=== PATIENT | female | born 1975 | race Caucasian/White ===

== ENCOUNTER 2020-09-10 11:32 | Emergency (ER) | payer MEDICARE, MEDICAID, SELFPAY ==
--- NOTE | ~2020-09-10 | XR_ITS ---
EXAMINATION: XR CHEST CLINICAL INFORMATION: Slurred speech COMPARISON: Chest radiographs 09/24/2017 TECHNIQUE: Portable upright AP view of the chest was obtained. FINDINGS: There are low lung volumes with inspiration to the right posterior eighth intercostal space. The lungs are clear. The vascularity is normal. The heart is normal in size. There is no airspace consolidation or groundglass opacity or effusion. The hilar and mediastinal contours are unremarkable. No visible acute bony abnormality. XR/XR chest 1V IMPRESSION: Low lung volumes. Lungs clear.
--- NOTE | ~2020-09-10 | CT_ITS ---
EXAMINATION: CT HEAD WITHOUT CONTRAST CLINICAL INFORMATION: Fatigue, dizziness and slurred speech for 3 days COMPARISON: None TECHNIQUE: Contiguous axial imaging was performed from the skull base to vertex without intravenous administration of contrast. This CT examination was performed using dose optimization techniques as appropriate, variously including the following: *Automated exposure control *Adjustment of mA and/or kV according to patient size (this includes techniques or standardized protocols for targeted exams where dose is matched to indication/reason for exam; i.e. extremities or head) *Use of iterative reconstruction technique DLP: 831 mGy-cm FINDINGS: There is no evidence of an extra-axial collection. There is no evidence of intra-axial or extra-axial hemorrhage. There are prominent extra-axial CSF spaces adjacent to both frontal lobes. The ventricles and extra-axial CSF spaces are otherwise appropriate. There is nonspecific periventricular white matter disease. No mass, mass effect or infarct is seen. there is soft tissue opacification of the bilateral mastoid air cells, right greater than left. The middle ears are clear. Paranasal sinuses are clear. CT/CT head/brain wo con IMPRESSION: Soft tissue opacification of the bilateral mastoid air cells, right greater than left, questionable for mastoiditis. Prominent extra-axial CSF spaces adjacent to the bilateral frontal lobes. Nonspecific periventricular white matter disease.
[2020-09-10 11:44] VITALS: BP 102/62; BP 102/63; PULSE 82; PULSE 83; RESP 16; TEMP 36.4; O2SAT 98; O2SAT 99; BMI 38.2
--- NOTE | 2020-09-10 12:10 | ECG_ITS ---
Test Reason : GEN MED Blood Pressure : / mmHG Vent. Rate : 074 BPM Atrial Rate : 074 BPM P-R Int : 182 ms QRS Dur : 090 ms QT Int : 366 ms P-R-T Axes : 024 020 073 degrees QTc Int : 406 ms Normal sinus rhythm Low voltage QRS Nonspecific T wave abnormality Abnormal ECG When compared with ECG of 07-SEP-2017 11:39, Criteria for Septal infarct are no longer Present Nonspecific T wave abnormality, worse in Inferior leads Nonspecific T wave abnormality, worse in Anterolateral leads Referred By: Gemma Soto Electronically Signed By:SAEED MEZA
[2020-09-10] MEDS: 0.9 % Sodium Chloride 1,000 ML 999 ML IVCONT (12:16)
[2020-09-10 12:35] LABS: MANUAL DIFF FLAG NO
[2020-09-10 12:37] LABS: Basophils Percent Auto 0.6 % (0-2); Eosinophils Absolute Auto 0.8 X10*3/uL (0.0-0.4); Hematocrit 33.5 % (37-47); Hemoglobin 10.2 g/dl (12.0-16.0); Imm Gran Abs Auto 0.02 X10*3/uL (0.00-0.03); Imm Gran Pct Auto 0.3 % (0.0-0.4); Lymphocytes Percent Auto 27.7 % (20-40); Mean Corpuscular HGB Conc 30.4 g/dl (31.0-35.0); Mean Corpuscular Hemoglobin 26.1 pg (27.0-33.0); Mean Corpuscular Volume 85.7 fL (80-98); Mean Platelet Volume 9.1 fL (9.4-12.3); Monocytes Absolute Auto 0.7 X10*3/uL (0.1-1.2); Monocytes Percent Auto 9.4 % (2-11); Neutrophils Absolute Auto 3.6 X10*3/uL (2.0-8.3); Platelet Count 271 X10*3/uL (160-400); Red Blood Count 3.91 X10*6/uL (4.20-5.50); Red Cell Distribution Width 17.1 % (11.0-16.0); White Blood Count 7.1 X10*3/uL (4.8-10.8)
[2020-09-10 12:45] LABS: INTERNATIONAL NORM RATIO 1.1 (0.9-1.1); Prothrombin Time 12.8 SEC (9.9-13.0)
[2020-09-10 13:13] LABS: Alanine Aminotransferase 9 U/L (0-31); Albumin Level 3.7 g/dL (3.5-5.0); Alkaline Phosphatase 100 U/L (39-117); Anion Gap 14 (12-20); Aspartate Amino Transferase 9 U/L (5-31); Bilirubin Total 0.3 mg/dL (0.0-1.0); Blood Urea Nitrogen 16 mg/dL (9-16); Carbon Dioxide 20 mmol/L (22-29); Chloride 111 mmol/L (96-108); Creatinine Clr Calc Pharmacy 103.8; Estimated Glomerular Filt Rate > 60; Glucose Random 94 mg/dL (60-115); Lipase 14 U/L (8-78); Magnesium 1.9 mg/dL (1.6-2.6); Potassium 4.1 mmol/L (3.3-5.1); Sodium 141 mmol/L (135-145); Total Protein 6.1 g/dL (6.5-8.0)
[2020-09-10 13:17] LABS: B Type Natriuretic Peptide 15 pg/mL (<100)
[2020-09-10 13:19] LABS: HCG Quantitative < 2 mIU/mL
[2020-09-10 13:54] VITALS: BP 100/66; PULSE 66; RESP 16; O2SAT 98
--- NOTE | 2020-09-10 13:55 | PC.NURSE ---
Pt restful, intermittently falls asleep which mother reports pt has been doing frequently at home. awakes easily to verbal stimuli. NSR on monitor. Pt difficult lab draw, second cx sent with lactic acid. Fluids continue to infuse, placed on higher IV pole for better flow
[2020-09-10 14:15] LABS: Lactic Acid 1.2 mmol/L (0.5-2.0)
--- NOTE | 2020-09-10 14:37 | ED_ITS ---
HPI - General Adult General Chief complaint: General Medical Stated complaint: slurred speech/ UTI Time Seen by Provider: 09/10/20 11:37 Source: patient, family (Mother ) and EMS Mode of arrival: EMS Limitations: other ( Multiple Sclerosis ) History of Present Illness HPI narrative: 44-year-old female with a past medical history of multiple sclerosis, recurrent UTI infections with a chronic suprapubic catheter, PTSD, bipolar disorder and depression presenting to the ED via EMS with her mother at bedside with complaints of progressive dizziness over the past 4 months with increased fatigue along with what the patient reports a UTI for 5 days. patient reports she is currently on antibiotics for UTI from her PCP although she is unsure of the name. The mother and apparently [employer] RE[employer] reports that her speech has been slurred usually in the morning for the past 3 days then subsides after a few hours and they were concerned about this. Patient reports that before she has her coffee in the morning she has slurred speech and when she has her coffee her slurred speech resolved completely. Patient also reports a dry mouth / tongue reports she thinks is from her new meds although she is not sure of the new med that she is on for the UTI. Reports that she is being followed by Urology although they do not place her on antibiotics for UTI unless she has hematuria therefore she followed up with her PCP and they placed her on an antibiotic for UTI. patient is wheelchair/ bed bound. Uses a Cosmo lift to be lifted into the wheelchair /bed. She denies any recent falls or head trauma. She denies any dizziness at this time, headaches, change of vision, nausea /vomiting, chest pain, shortness of breath, palpitations, dyspnea on exertion, orthopnea, nausea/ vomiting /diarrhea, back pain, abdominal pain, hematuria, constipation, black or bloody stools. Related Data Previous Rx's Medication Instructions Recorded cholecalciferol (vitamin D3) 10 10 mcg PO DAILY #90 cap 12/13/19 mcg (400 unit) capsule sennosides 8.6 mg-docusate sodium 1 tab-cap PO BEDTIME 90 Days #90 07/07/20 50 mg tablet tab cefuroxime axetil 500 mg PO BID 7 Days #14 tab 09/10/20 Allergies Allergy/AdvReac Type Severity Reaction Status Date / Time No Known Allergies Allergy Unverified 11/21/19 15:59 [No Known Allergies*] Review of Systems Review of Systems: Constitutional : positive increased fatigue, No Weight loss, No Fever, No Chills, No Night Sweats, NoMalaise ENT/Mouth: No ear pain, No sore throat, No Difficulty swallowing Cardiovascular : No Chest Pain, No SOB, No Dyspnea on Exertion, No Orthopnea, NoEdema, No Palpitations Respiratory : No Cough, No Sputum, No Wheezing, No Dyspnea Gastrointestinal : No Nausea, No Vomiting, No abdominal pain, No Diarrhea, No blood streaked emesis, No coffee-ground emesis, No gross hematemesis, No blood streak stool, No gross hematochezia, No Melena Genitourinary : No irregular bleeding, No Dysuria, No Urinary Frequency, No Hematuria,No Urinary Incontinence, No Urgency, No Flank Pain Musculoskeletal : No joint pain, No Myalgias, No Joint Swelling Skin : No Skin Lesions, No rash Neuro : Positive intermittent dizziness, No Weakness, No Numbness, No Paresthesias, No Loss of Consciousness, No Headache Psych : No Social Issues, Heme/Lymph: No Bruising, No Bleeding,No Lymphadenopathy Endocrine : No Polyuria, No Polydipsia, No Temperature Intolerance Yes all other systems are reviewed and are negative [facility] Past Medical History Attestation statement: The following information was validated with the patient. Social History Social History Alcohol intake: never Patient Tobacco Use Status: Never used Tobacco Use of substances other than those prescribed or required for medical reasons: No Any prior treatment program specific to substance use: No Advance Directives: No Advance Directives Information Provided: No Patient : No Physical Exam Vital Signs: Vital Signs: Last Vital Signs Temp 97.6 F 09/10/20 11:44 Pulse 66 09/10/20 13:54 Resp 16 09/10/20 13:54 BP 100/66 09/10/20 13:54 Pulse Ox 98 09/10/20 13:54 Body Mass Index 38.2 vital signs have been reviewed as normal and appeared to be correct. Blood pressure normal. Heart rate normal. Respiration rate normal. Temperature normal. Oxygen saturation normal. Appearance: Alert. Oriented X3. No acute distress. Head: Normal external exam. Normocephalic. Atraumatic. Able to rotate head bilaterally. Eyes: PERRLA. EOMI. No nystagmus noted. Conjunctiva and sclera normal. Eyelids normal. Corneal reflex normal. ENT: EAC normal. TM's Normal. No signs of mastoiditis on my exam. There is no redness or protrusion of the ears. Pharynx normal. Uvula midline. Moist mucous membranes. No trismus noted. No drooling noted. No muffled voice noted. Neck: Normal inspection. Neck supple. FROM. No adenopathy. Thyroid Normal. No meningeal signs. No neck mass noted. CVS: Normal heart rate and rhythm. Heart sound normal. Pulses normal throughout. No murmurs/rales/gallops. Respiratory: No respiratory distress. Painless inspiration. Breath sounds n ormal. No wheezes/rales/rhonchi noted. Chest nontender. No accessory muscle usage noted or decreased air movement noted. Abdomen: Soft and nontender. Bowel sounds normal in all 4 quadrants. No diste ntion noted. No organomegaly noted. No visible injury noted. Back: No CVA tenderness. Full range of motion noted. No rashes/lesion/induration/fluctuance or signs of infection noted. Skin: Skin warm and dry. Normal skin color. Normal skin turgor. No rashes/lesions/lacerations noted. Extremities: No lower extremity edema. Extremities exhibit normal range of motion. Extremities nontender. Neuro: Oriented X 3. Patient is bedbound therefore gait not tested. Patient motor is at baseline and sensation per patient and mother at bedside.Cranial nerves II-XI intact bilaterally.Facial strength normal. Normal cognition. Speech normal. No pronator drift. No tremor noted. No fasciculations noted. No rigidity noted. [id number] test normal. Hand drop from overhead Misses face. Vascular: + radial pulses/+ 2 distal pedal pulses/+2 dorsalis pedis b/l. Normal cap refill. No cyanosis noted to upper extremity nails and lower extremity toes nails. Course Course Course Narrative: 12:10pm - 44-year-old female with a past medical history of multiple sclerosis, recurrent UTI infections with a chronic suprapubic catheter, PTSD, bipolar disorder and depression presenting to the ED via EMS with her mother at bedside with complaints of progressive dizziness over the past 4 months with increased fatigue along with what the patient reports a UTI for 5 days. patient reports she is currently on antibiotics for UTI from her PCP although she is unsure of the name. The mother and apparently [employer] reports that her speech has been slurred usually in the morning for the past 3 days then subsides after a few hours and they were concerned about this. On exam patient is at baseline for motor and sensation. Alert and oriented x3. No new focal neural deficits are noted. Normal cognition. Normal speech. Normal facial strength. NIH SS score 0. Patient has non disabling symptoms therefore tPA not indicated And patient's symptoms started 3 days ago therefore she would not be a tPA candidate. Plan:Labs, CT scan of brain, EKG, chest x-ray, blood cultures, lactic acid replace the patient's suprapubic catheter as she is requesting for it to be changed as it has not been changed in over a month. Provide a L of IV fluids and re-evaluate Reevaluation(s) Reevaluation #1: - Patient with mild anemia. She denies any bleeding. Otherwise all other labs are within normal limits. Serum quant negative for . EKG is normal sinus rhythm with ventricular rate of 74 with nonspecific T-wave abnormalities no acute ischemic changes are noted. Similar compared to prior EKG. Chest x-ray within normal limits no acute processes are noted. - CT scan of brain reveals soft tissue opacification of the bilateral mastoid air cells, right greater than left, questionable for mastoiditis. Prominent extra-axial CSF spaces adjacent to the bilateral frontal lobes. Nonspecific periventricular white matter disease. - therefore I went to re-evaluate the patient and she does not have any evidence of acute mastoiditis most likely the patient's progressive dizziness over the past 4 months is chronic mastoiditis. Her suprapubic catheter exchange no difficulties were noted. Will DC home with antibiotics and instructions to follow-up with her PCP/urologist and will give her referral for Ear Nose and Throat and to return if any new or worsening symptoms. Patient and mother at bedside understand and agree with this plan. Time: 15:27 Medical Decision Making Medical Records Medical records reviewed: Yes I reviewed the patient's medical records. Lab Data Lab results reviewed: Yes I reviewed the patient's lab results. Result diagrams: 09/10/20 12:33 09/10/20 12:27 Labs: Lab Results 09/10/20 09/10/20 09/10/20 Range/Units 12:27 12:27 12:27 WBC (4.8-10.8) X10*3/uL RBC (4.20-5.50) X10*6/uL Hgb (12.0-16.0) g/dl Hct (37-47) % MCV (80-98) fL MCH (27.0-33.0) pg MCHC (31.0-35.0) g/dl RDW (11.0-16.0) % Plt Count (160-400) X10*3/uL MPV (9.4-12.3) fL Immature Gran % (Auto) (0.0-0.4) % Neut % (Auto) (45-73) % Lymph % (Auto) (20-40) % [place] % (Auto) (2-11) % Eos % (Auto) (0-4) % Baso % (Auto) (0-2) % Lymph # (Auto) (1.2-4.9) X10*3/uL [place] # (Auto) (0.1-1.2) X10*3/uL Eos # (Auto) (0.0-0.4) X10*3/uL Baso # (Auto) (0.0-0.2) X10*3/uL Abs Immat Gran (auto) (0.00-0.03) X10*3/uL Absolute Neuts (auto) (2.0-8.3) X10*3/uL Absolute Nucleated RBC (0.0-0.012) X10*3/uL Nucleated RBC % (auto) (0.0-0.2) /100WBC Hold Purple Top SEE NOTE PT (9.9-13.0) SEC INR (0.9-1.1) Sodium 141 (135-145) mmol/L Potassium 4.1 (3.3-5.1) mmol/L Chloride 111 H (96-108) mmol/L Carbon Dioxide 20 L (22-29) mmol/L Anion Gap 14 (12-20) BUN 16 (9-16) mg/dL Creatinine 0.82 (0.5-1.4) mg/dL Estim Creat Clear Calc 103.8 Estimated GFR > 60 Random Glucose 94 (60-115) mg/dL Lactic Acid (0.5-2.0) mmol/L Calcium 9.0 (8.4-10.2) mg/dL Magnesium 1.9 (1.6-2.6) mg/dL Total Bilirubin 0.3 (0.0-1.0) mg/dL AST 9 (5-31) U/L ALT 9 (0-31) U/L Alkaline Phosphatase 100 (39-117) U/L B-Natriuretic Peptide 15 (<100) pg/mL Total Protein 6.1 L (6.5-8.0) g/dL Albumin 3.7 (3.5-5.0) g/dL Lipase 14 (8-78) U/L Beta HCG, Quant < 2 mIU/mL Urine Color Urine Appearance Urine pH (5.0-8.0) Ur Specific [place] (1.005-1.025) Urine Protein (NEG-TRACE) MG/DL Urine Glucose (UA) (NEG) MG/DL Urine Ketones (NEG) MG/DL Urine Blood (NEG) Urine Nitrite (NEG) Ur Leukocyte Esterase (NEG) 09/10/20 09/10/20 09/10/20 Range/Units 12:33 12:33 13:46 WBC 7.1 (4.8-10.8) X10*3/uL RBC 3.91 L (4.20-5.50) X10*6/uL Hgb 10.2 L (12.0-16.0) g/dl Hct 33.5 L (37-47) % MCV 85.7 (80-98) fL MCH 26.1 L (27.0-33.0) pg MCHC 30.4 L (31.0-35.0) g/dl RDW 17.1 H (11.0-16.0) % Plt Count 271 (160-400) X10*3/uL MPV 9.1 L (9.4-12.3) fL Immature Gran % (Auto) 0.3 (0.0-0.4) % Neut % (Auto) 51.0 (45-73) % Lymph % (Auto) 27.7 (20-40) % [place] % (Auto) 9.4 (2-11) % Eos % (Auto) 11.0 H (0-4) % Baso % (Auto) 0.6 (0-2) % Lymph # (Auto) 2.0 (1.2-4.9) X10*3/uL [place] # (Auto) 0.7 (0.1-1.2) X10*3/uL Eos # (Auto) 0.8 H (0.0-0.4) X10*3/uL Baso # (Auto) 0.0 (0.0-0.2) X10*3/uL Abs Immat Gran (auto) 0.02 (0.00-0.03) X10*3/uL Absolute Neuts (auto) 3.6 (2.0-8.3) X10*3/uL Absolute Nucleated RBC 0.000 (0.0-0.012) X10*3/uL Nucleated RBC % (auto) 0.0 (0.0-0.2) /100WBC Hold Purple Top PT 12.8 (9.9-13.0) SEC INR 1.1 (0.9-1.1) Sodium (135-145) mmol/L Potassium (3.3-5.1) mmol/L Chloride (96-108) mmol/L Carbon Dioxide (22-29) mmol/L Anion Gap (12-20) BUN (9-16) mg/dL Creatinine (0.5-1.4) mg/dL Estim Creat Clear Calc Estimated GFR Random Glucose (60-115) mg/dL Lactic Acid 1.2 (0.5-2.0) mmol/L Calcium (8.4-10.2) mg/dL Magnesium (1.6-2.6) mg/dL Total Bilirubin (0.0-1.0) mg/dL AST (5-31) U/L ALT (0-31) U/L Alkaline Phosphatase (39-117) U/L B-Natriuretic Peptide (<100) pg/mL Total Protein (6.5-8.0) g/dL Albumin (3.5-5.0) g/dL Lipase (8-78) U/L Beta HCG, Quant mIU/mL Urine Color Urine Appearance Urine pH (5.0-8.0) Ur Specific [place] (1.005-1.025) Urine Protein (NEG-TRACE) MG/DL Urine Glucose (UA) (NEG) MG/DL Urine Ketones (NEG) MG/DL Urine Blood (NEG) Urine Nitrite (NEG) Ur Leukocyte Esterase (NEG) 09/10/20 Range/Units 16:56 WBC (4.8-10.8) X10*3/uL RBC (4.20-5.50) X10*6/uL Hgb (12.0-16.0) g/dl Hct (37-47) % MCV (80-98) fL MCH (27.0-33.0) pg MCHC (31.0-35.0) g/dl RDW (11.0-16.0) % Plt Count (160-400) X10*3/uL MPV (9.4-12.3) fL Immature Gran % (Auto) (0.0-0.4) % Neut % (Auto) (45-73) % Lymph % (Auto) (20-40) % [place] % (Auto) (2-11) % Eos % (Auto) (0-4) % Baso % (Auto) (0-2) % Lymph # (Auto) (1.2-4.9) X10*3/uL [place] # (Auto) (0.1-1.2) X10*3/uL Eos # (Auto) (0.0-0.4) X10*3/uL Baso # (Auto) (0.0-0.2) X10*3/uL Abs Immat Gran (auto) (0.00-0.03) X10*3/uL Absolute Neuts (auto) (2.0-8.3) X10*3/uL Absolute Nucleated RBC (0.0-0.012) X10*3/uL Nucleated RBC % (auto) (0.0-0.2) /100WBC Hold Purple Top PT (9.9-13.0) SEC INR (0.9-1.1) Sodium (135-145) mmol/L Potassium (3.3-5.1) mmol/L Chloride (96-108) mmol/L Carbon Dioxide (22-29) mmol/L Anion Gap (12-20) BUN (9-16) mg/dL Creatinine (0.5-1.4) mg/dL Estim Creat Clear Calc Estimated GFR Random Glucose (60-115) mg/dL Lactic Acid (0.5-2.0) mmol/L Calcium (8.4-10.2) mg/dL Magnesium (1.6-2.6) mg/dL Total Bilirubin (0.0-1.0) mg/dL AST (5-31) U/L ALT (0-31) U/L Alkaline Phosphatase (39-117) U/L B-Natriuretic Peptide (<100) pg/mL Total Protein (6.5-8.0) g/dL Albumin (3.5-5.0) g/dL Lipase (8-78) U/L Beta HCG, Quant mIU/mL Urine Color YELLOW Urine Appearance CLOUDY Urine pH 7.5 (5.0-8.0) Ur Specific [place] 1.020 (1.005-1.025) Urine Protein 2+ H (NEG-TRACE) MG/DL Urine Glucose (UA) NEG (NEG) MG/DL Urine Ketones NEG (NEG) MG/DL Urine Blood 3+ H (NEG) Urine Nitrite NEG (NEG) Ur Leukocyte Esterase 1+ H (NEG) Imaging Data Chest x-ray: Attestation: I personally reviewed and interpreted this imaging study as follows: Radiologist's impression: FINDINGS: There are low lung volumes with inspiration to the right posterior eighth intercostal space. The lungs are clear. The vascularity is normal. The heart is normal in size. There is no airspace consolidation or groundglass opacity or effusion. The hilar and mediastinal contours are unremarkable. No visible acute bony abnormality. XR/XR chest 1V IMPRESSION: Low lung volumes. Lungs clear. ECG Data Attestation: I personally reviewed and interpreted this ECG as follows: Interpretation: Normal sinus rhythm with ventricular rate of 74 with a normal [place] interval nonspecific T-wave abnormality similar when compared to prior EKG 09/07/2017 no acute ischemic changes are noted. Discharge Plan Discharge Clinical Impression: UTI (urinary tract infection), Chronic mastoiditis Patient Disposition: Home, Self-Care Instructions: Urinary Tract Infection in Women (ED), Mastoiditis (ED) Prescriptions: New cefuroxime axetil 500 mg tablet 500 mg PO BID 7 Days Qty: 14 RF: 0 No Action cholecalciferol (vitamin D3) 10 mcg (400 unit) capsule 10 mcg PO DAILY Qty: 90 RF: 2 sennosides-docusate sodium [Senna-S] 8.6-50 mg tablet 1 tab-cap PO BEDTIME 90 Days Qty: 90 RF: 3 Referrals: Kajal Moore MD [Primary Care Provider] - 2 days Lg Weldon [Physician] - 2 days ( chronic mastoiditis) Print Language: Czech
--- NOTE | 2020-09-10 15:00 | PC.NURSE ---
Report to Amol TOLEDO
[2020-09-10 17:08] LABS: Glucose Urine UA NEG (NEG); Leukocyte Esterase Urine 1+ (NEG); Nitrite Urine NEG (NEG); PH 7.5 (5.0-8.0); UACC Culture Trigger YES; Urine Blood 3+ (NEG); Urine Ketones NEG (NEG); Urine Protein 2+ MG/DL (NEG-TRACE)
[2020-09-10 17:17] LABS: Appearance Urine CLOUDY; Color Urine YELLOW
[2020-09-10 17:32] LABS: Amorphous Sediment Urine 2+ /LPF; Mucus Urine 2+ /LPF; RBC Urine TNTC /HPF (0)
[2020-09-10 18:36] VITALS: BP 112/71; PULSE 73; RESP 16; TEMP 36.5; O2SAT 98
== END 2020-09-10 18:38 | disposition home or self-care (01) ==
PROVIDERS: Physician Assistant Medical; Emergency Provider Emergency Medicine; PCP Internal Medicine
DX: N39.0 Urinary tract infection, site not specified (principal); H70.10 Chronic mastoiditis, unspecified ear; D64.9 Anemia, unspecified; G35 Multiple sclerosis; Z93.50 Unspecified cystostomy status; Z74.01 Bed confinement status
CPT/HCPCS: 36415; 70450; 71045; 80053; 81001; 81003; 83605; 83690; 83735; 83880; 84702; 85025; 85610; 87040; 87086; 87088; 87186; 93005; 96360; 99284; 99285